=== PATIENT | female | born 1970 | race Caucasian/White ===

== ENCOUNTER 2019-02-04 21:40 | Inpatient (IN) | payer BC ==
[2019-02-04] MEDS ORDERED: ONDANSETRON 4 MG/2 ML VIAL IV PRN (22:06)
[2019-02-04] MEDS ORDERED: MORPHINE 2 MG/ML SYR IV PRN (22:06)
[2019-02-04] MEDS ORDERED: ACETAMINOPHEN 500 MG TAB PO PRN (22:06)
[2019-02-04 23:02] VITALS: BMI 23.6
[2019-02-04] MEDS: NA CHLORIDE 0.9% 1,000 ML IV SCH (23:15)
[2019-02-05] MEDS ORDERED: Meropenem 500 MG VIAL IV SCH (01:00)
[2019-02-05] MEDS ORDERED: Meropenem 1 GM/100 ML BAG ONE (01:39)
[2019-02-05 04:34] LABS: Absolute Lymphocytes (CBC) 3.9 K/uL (0.7-4.9); Absolute Monocytes 0.5 K/uL (0.1-1.3); Absolute Neutrophil 3.8 K/uL (1.8-8.0); Basophils % 0.2 % (0-1.3); Eosinophils % 1.1 % (0-4.4); Hematocrit 38.9 % (36.0-45.0); Lymphocytes % 46.8 % (15.3-44.8); MPV 10.2 fL (7.6-11.3); RBC Red Blood Cell Count 4.25 M/uL (3.86-4.86)
[2019-02-05 04:46] LABS: Albumin 3.2 g/dL (3.4-5.0); Bilirubin Total 0.3 mg/dL (0.2-1.0); Potassium 4.3 mmol/L (3.5-5.1); Protein, Total 6.4 g/dL (6.4-8.2)
--- NOTE | 2019-02-05 07:50 | P.HP ---
Certification for Inpatient Patient admitted to: Inpatient With expected LOS: >2 Midnights Patient will require the following post-hospital care: None Practitioner: I am a practitioner with admitting privileges, knowledge of patient current condition, hospital course, and medical plan of care. Services: Services provided to patient in accordance with Admission requirements found in Title 42 Section 412.3 of the Code of Federal Regulations Patient History Date of Service: 02/04/19 Reason for admission: MULTI DRUG-RESISTANT URINARY TRACT INFECTION History of Present Illness: Patient is a 48-year-old female who was admitted to the hospital because she grew out an E coli which was resistant to all oral antibiotics. She has had frequent urinary tract infections over the past couple of years. Since she had a gastric sleeve surgery This is the 3rd infection she will be treated. Her urine sample initially chemo out an E coli which was susceptible to the aminoglycosides, the carbapenems, and Zosyn. There was not a urine microscopy to go along with it. So she had a urine analysis repeated with microscopy. This showed significant white blood cells and bacteria count. Thus she will be admitted to the hospital for further treatment. Allergies NKDA Allergy (Uncoded 11/08/15 21:19) Unknown Home Medications: NK [No Home Meds] 02/05/19 - Past Medical/Surgical History Has patient received pneumonia vaccine in the past: No Diabetic: No -: Recurrent UTIs -: uterine ablation -: tubal ligation -: bladder suspension -: Gastric sleeve - Family History Father Family History: Reviewed- Non-Contributory - Social History Smoking Status: Current every day smoker Alcohol use: Yes CD- Drugs: No Caffeine use: Yes Place of Residence: Home Review of Systems 10-point ROS is otherwise unremarkable Physical Examination - Vital Signs Temperature: 96.9 F Blood Pressure: 94/63 Pulse: 58 Respirations: 20 Pulse Ox (%): 98 - Physical Exam General: Alert, In no apparent distress, Oriented x3 HEENT: Atraumatic, PERRLA, Mucous membr. moist/pink, EOMI, Sclerae nonicteric Neck: Supple, 2+ carotid pulse no bruit, No LAD, Without JVD or thyroid abnormality Respiratory: Clear to auscultation bilaterally, Normal air movement Cardiovascular: Regular rate/rhythm, Normal S1 S2, No murmurs Gastrointestinal: Normal bowel sounds, Soft and benign, Non-distended, No tenderness Musculoskeletal: No clubbing, No swelling, No tenderness Integumentary: No rashes Neurological: Normal gait, Normal speech, Normal strength at 5/5 x4 extr, Normal tone, Sensation intact, Cranial nerves 3-12 intact, Normal affect Lymphatics: No axilla or inguinal lymphadenopathy - Studies Laboratory Data (last 24 hrs) 02/05/19 03:55: Sodium 144, Potassium 4.3, BUN 10, Creatinine 0.83, Glucose 89, Total Bilirubin 0.3, AST 11 L, ALT 11 L, Alkaline Phosphatase 76 02/05/19 03:55: WBC 8.3, Hgb 13.1, Hct 38.9, Plt Count 224 Assessment & Plan - Problems (Diagnosis) (1) Infection due to multidrug resistant organism, newly diagnosed Current Visit: Yes Status: Acute - Plan Plan: 1. IV fluids and IV antibiotics 2. urology consultation 3. ID consultation 4. Pain control 5. PICC line and outpatient home health 6. GI and DVT prophylaxis Discharge Plan: Home Plan to discharge in: Greater than 2 days - Advance Directives Does patient have a Living Will: No Does patient have a Durable POA for Healthcare: No - Code Status/Comfort Care Code Status Assessed: Yes Code Status: Full Code Critical Care: No Time Spent Managing PTS Care (In Minutes): 45
[2019-02-05] MEDS: Meropenem 500 MG in NA CHLORIDE 0.9% 100 ML IV SCH ×2 (09:16→16:56)
[2019-02-05] MEDS: NA CHLORIDE 0.9% 1,000 ML IV SCH ×2 (09:17→22:01)
[2019-02-05 12:00] LABS: Urine Appearance CLOUDY; Urine Bilirubin NEGATIVE (NEG); Urine Blood NEGATIVE (NEG); Urine Color YELLOW; Urine Glucose NEGATIVE (NEG); Urine Protein NEGATIVE (NEG); Urine Urobilinogen 0.2 mg/dL (0.2-1.0)
[2019-02-05 12:03] LABS: Urine Microscopic Reflex ORDER UMIC
[2019-02-05 12:38] LABS: Calcium Oxalate Crystals- Ur PRESENT (NONE SEEN); Urine Amorphous Sediment 1+ /HPF (NONE SEEN); Urine Bacteria <20 /HPF (<20); Urine RBC <5 /HPF (NONE SEEN)
[2019-02-05 12:44] LABS: Urine Culture Reflex Order NOT NEEDED
--- NOTE | 2019-02-05 17:05 | CON ---
History Of Present Illness: This is a 48-year-old female. I was consulted for recurrent urinary tra ct infection, which happened in September and October, and her primary care called her to be seen. Th e patient is growing E. coli, ESBL sensitive to meropenem, amikacin and intermediate to Zosyn and cef otetan. In September, the patient had Enterobacter and Klebsiella pneumoniae. The patient denies any abdominal pain, nausea, vomiting, fevers, or burning urination. Past Medical History: None. Social History: Nonsmoker. Nondrinker. Family History: Noncontributory. Medications: Meropenem. See [facility] for other medication. Allergies: NO KNOWN DRUG ALLERGIES. Review of Systems: A 10-point review was performed. Physical Examination: General: This is a 48-year-old female, not in any acute distress. Vital Signs: Temperature 96.9, pulse 58, respirations 14, blood pressure 94/63. Physical examination unremarkable. Laboratory Data: Shows WBC 8.3, hemoglobin 13.1, platelets 224. Chemistry shows sodium 144, potassi um 4.3, chloride 110, bicarb 31, BUN 10, creatinine 0.83, glucose is 89. Assessment And Plan: Recurrent urinary tract infection. At this time, the patient is growing gram-n egative rods. Previously, the patient had Escherichia coli and Extended spectrum beta-lactamases and also enterococcus. We will recommend meropenem 5-7 days. The patient definitely needs a urological evaluation for possible anatomical challenges, which are causing her to have recurrent urinary tract infection. We will follow the patient closely. Thank you, Dr. Bañuelos, for consult. RAMÓN/TOM Voice ID: [id number] Report ID: [id number]
--- NOTE | 2019-02-05 19:11 | RAD REPORT ---
EXAM DESCRIPTION: CT - Abdomen Pelvis W/Wo Contrast - 02/05/2019 6:11 pm CLINICAL HISTORY: Abdominal pain, flank pain, recurrent UTIs ; prior cholecystectomy and gastric sle sudha, prior uterine ablation COMPARISON: CT imaging October 2015 TECHNIQUE: Biphasic, helical CT imaging of the abdomen and pelvis was performed following 100 ml non -ionic IV contrast. Oral contrast was given. Precontrast imaging was performed. All CT scans are performed using dose optimization technique as appropriate and may include automated exposure control or mA/KV adjustment according to patient size. FINDINGS: No suspicious findings in the lung bases. The liver, spleen, and pancreas show no suspicious findings. Cholecystectomy clips are present. No ab normal biliary tree dilatation. No hydronephrosis is present. Precontrast imaging shows a 3 millimeter nonobstructing calyx calcifica tion lateral mid left kidney. This is new from the 2016 study. No other renal, ureteral or bladder ca lculi seen. Parenchymal renal enhancement pattern is normal. No pyelonephritis or acute parenchymal p rocess. No bladder abnormalities. No adrenal abnormalities. Uterus and ovaries show no suspicious findings. No dilated bowel loops or bowel wall thickening. The appendix is normal. No free air, free fluid or i nflammatory stranding. No hernia, mass or bulky lymphadenopathy. No suspicious bony findings. IMPRESSION: Small 3 mm nonobstructing calyx calcification lateral mid left kidney new from 2016. No hydronephrosis. No other obstructing or nonobstructing renal, ureteral or bladder calculi. Normal enhancement of the renal parenchyma. No abnormality seen to explain recurrent UTIs.
--- NOTE | 2019-02-05 20:59 | CON ---
History Of Present Illness: Ms. Shayy Verdin is a pleasant 48-year-old female admitted to the hospital where she grew multidrug-resistant E coli for iv. She was admitted to the hospitalist service, Dr. Bañuelos to start IV meropenem and then set up outpatient after PICC line has been placed. Her E coli is sensitive to amikacin, ertapenem, meropenem, pip-tazobactam. Apparently, she was having lots of frequent urinary tract infections lately. In October, she grew an E coli that was similar. In August, she grew Enterobacter aerogenes, Kleb pneumonia. In December 2015, she grew Enterococcus faecalis and in October 2015, she grew Staph epidermidis in the urine. The cause of this is unknown. She had a CT scan done in 2015 that was negative for abdominal pain at that time. I would like to start over with her checking postvoid residual, checking a CT scan of the abdomen and pelvis and a cystoscopy in the office. I agree with placing a PICC line for outpatient antibiotics, 10 to 14 days. Allergies: NO KNOWN DRUG ALLERGIES. Home Medications: None. Past Medical And Surgical History: Recurrent UTIs, uterine ablation, tubal ligation, bladder suspension, and gastric sleeve. Family History: Noncontributory. Social History: Smoking status, smokes every day. Alcohol use, yes. Drug use , none. Caffeine use, yes. Resides at home. Review of Systems: Ten-point review of systems otherwise unremarkable. Physical Examination: Latest Vital Signs: 97.8, 57, 16, 109/52, and saturations 97%. General: Alert and oriented x3. HEENT: Atraumatic and normocephalic. Neck: Supple. Respiratory: Clear. Cardiovascular: S1 and S2. Gastrointestinal: Normal bowel sounds. Musculoskeletal: No clubbing, no swelling. Skin: No rashes. Neurological: Normal gait. Normal speech. Normal tone. Lymphatic: Negative. Laboratory Studies: Reviewed. Urine culture is growing gram-negative rods. White count normal at 8.3, H and H of 13 and 39, platelets 224. Assesment: Patient has a multidrug-resistant urinary tract infection, with recurrent infection. Plan: To repeat CT scan with and without contrast this time. The last one was about 3 years ago with no contrast. Contrast CT scan can reveal things like colovesical fistula and so forth. She will need outpatient cystoscopy. She needs to go on probiotics. She needs to take cranberry supplements and I recommended D-Mannose 1500 mg a day to start with and then she will receive a PICC line to go home for 10 to 14 days of IV meropenem. NADJA/TOM Voice ID: [id number] Report ID: [id number] LILIBETH
[2019-02-06] MEDS: Meropenem 500 MG in NA CHLORIDE 0.9% 100 ML IV SCH ×2 (01:25→08:47)
[2019-02-06] MEDS ORDERED: VANCOMYCIN 1 GM/VIAL ONE (02:08)
[2019-02-06 02:40] VITALS: O2SAT 95
[2019-02-06] MEDS: NA CHLORIDE 0.9% 1,000 ML IV SCH ×2 (05:00→15:00)
--- NOTE | 2019-02-06 10:54 | P.PN ---
Subjective Date of Service: 02/05/19 Chief Complaint: MULTI DRUG-RESISTANT URINARY TRACT INFECTION Patient started on Merrem for ESBL E coli. Outpatient urinalysis showed greater than 50 bacterial count & greater than [address] scan pending. CT revealed 3 mm stone in the left ureter. Nonobstructive. This will hopefully clear soon. Will the patient to strain her urine as well. Review of Systems 10-point ROS is otherwise unremarkable Physical Examination - Vital Signs Temperature: 97.8 F Blood Pressure: 110/65 Pulse: 57 Respirations: 16 Pulse Ox (%): 97 - Physical Exam General: Alert, In no apparent distress, Oriented x3 HEENT: Atraumatic, PERRLA, EOMI Neck: Supple, JVD not distended Respiratory: Clear to auscultation bilaterally, Normal air movement Cardiovascular: Regular rate/rhythm, Normal S1 S2 Gastrointestinal: Normal bowel sounds, Soft and benign, Non-distended, No tenderness Musculoskeletal: No tenderness Integumentary: No rashes Neurological: Normal speech, Normal tone, Normal affect Lymphatics: No axilla or inguinal lymphadenopathy - Studies Medications List Reviewed: Yes Assessment & Plan - Problems (Diagnosis) (1) Infection due to multidrug resistant organism, newly diagnosed Current Visit: Yes Status: Acute (2) Infection due to ESBL-producing Escherichia coli Current Visit: Yes Status: Acute - Plan Plan: 1. IV fluids and IV antibiotics 2. urology consultation 3. ID consultation 4. Pain control 5. PICC line and outpatient home health 6. Will use Invanz 1g IVPB daily for 12 days 7. GI and DVT prophylaxis Discharge Plan: Home Plan to discharge in: 48 Hours - Advance Directives Does patient have a Living Will: No Does patient have a Durable POA for Healthcare: No - Code Status/Comfort Care Code Status: Full Code Critical Care: No Time Spent Managing PTS Care (In Minutes): 30
--- NOTE | 2019-02-06 12:40 | RAD REPORT ---
EXAM DESCRIPTION: XR Chest, 1 View CLINICAL HISTORY: The patient is 48 years old and is Female; PICC Placement TECHNIQUE: Frontal view of the chest. COMPARISON: No relevant prior studies available. FINDINGS: LUNGS: Unremarkable. No consolidation. PLEURAL SPACE: Unremarkable. No pneumothorax. HEART: Unremarkable. No cardiomegaly. MEDIASTINUM: Unremarkable. BONES/JOINTS: Unremarkable. TUBES, LINES AND DEVICES: A right upper extremity PICC is present with the tip in the SVC. IMPRESSION: A right upper extremity PICC is present with the tip in the SVC. Electronically signed by: Lidia Carcamo MD 02/06/2019 3:37 AM CDT Due to temporary technical issues with the PACS/Fluency reporting system, reports are being signed by the in house radiologist as a courtesy to ensure prompt reporting. The interpreting radiologist is f ully responsible for the content of the report.
[2019-02-06] MEDS ORDERED: ERTAPENEM NA 1 GM in NA CHLORIDE 0.9% 100 ML IVPB SCH (14:00)
[2019-02-06] MEDS ORDERED: ERTAPENEM SODIUM 1 GM VIAL IVPB SCH (14:00)
[2019-02-06 16:32] VITALS: BP 118/69; TEMP 97.3
--- NOTE | 2019-02-06 19:27 | PN ---
Subjective: The patient is doing well. Objective: She is growing E. coli here, very resistant. Assessment: Multidrug resistant Escherichia coli. Plan: The patient to go home on Invanz 1 g IV daily, and plan to do a cystoscopy at the end of the IV round for another 12 days. Hydration, cranberry , probiotics, D-Mannose 1500 a day will be the plan for her. YOAN Voice ID: [id number] Report ID: [id number] MTDD
== END 2019-02-06 16:45 | disposition home or self-care (01) | DRG 690 ==
LOC: 4TH 21:40
PROVIDERS: ADMIT Hospitalist; ATTEND Hospitalist
PROC: 02HV33Z Insertion of Infusion Device into Superior Vena Cava, Percutaneous Approach (ICD-10-PCS; principal; 2019-02-06)
PROC: B548ZZA Ultrasonography of Superior Vena Cava, Guidance (ICD-10-PCS; 2019-02-06)
DX: N39.0 Urinary tract infection, site not specified (principal); N20.1 Calculus of ureter; B96.20 Unspecified Escherichia coli [E. coli] as the cause of diseases classified elsewhere; Z16.24 Resistance to multiple antibiotics; Z98.84 Bariatric surgery status; F17.210 Nicotine dependence, cigarettes, uncomplicated; Z16.12 Extended spectrum beta lactamase (ESBL) resistance
CPT/HCPCS: 36415; 71045; 74178; 80053; 81001; 81003; 81015; 85025; 87086; 87088; J1335; J2185; J7030; Q9967